=== PATIENT | female | born 1995 | race Two or more races ===

== ENCOUNTER 2019-10-06 17:38 | Emergency (ER) | payer MEDICAID ==
[~2019-10-06] VITALS: Ht 149.9 cm; Wt 55.0 kg
[2019-10-06] MEDS ORDERED: KETOROLAC 30MG/ML VIAL IV STA (19:04)
[2019-10-06] MEDS ORDERED: SODIUM CHLORIDE 0.9% 1,000 ML IV ONE (19:04)
[2019-10-06] MEDS ORDERED: ACETAMINOPHEN 325MG TABLET PO ONE (19:15)
[2019-10-06 19:37] LABS: CHLORIDE 105 mEq/L (98-107)
[2019-10-06 19:40] LABS: INR 0.9; PROTHROMBIN TIME 10.2 sec (9.6-11.0)
[2019-10-06 19:42] LABS: CLARITY URINE CLEAR (CLEAR); COLOR URINE YELLOW (YELLOW); KETONES URINE 1+ (NEGATIVE); LEUKOCYTE ESTERASE URINE 2+ (NEGATIVE); NITRITE URINE NEGATIVE (NEGATIVE); OCCULT BLOOD URINE 1+ (NEGATIVE); PROTEIN URINE NEGATIVE (NEGATIVE); SPECIFIC GRAVITY URINE 1.012 (1.005-1.030); UROBILINOGEN URINE 0.2 E.U./dL (0.2-1.0)
[2019-10-06 19:43] LABS: BASOPHILS % 0.4 % (0.0-2.0); EOSINOPHILS % 1.5 % (0.0-5.0); HEMATOCRIT. 40.8 % (36.0-48.0); HEMOGLOBIN. 13.9 g/dL (12.0-16.0); LYMPHOCYTES % 29.4 % (20.0-50.0); MEAN CORPUSCULAR HEMOGLOBIN 32.2 pg (28.0-32.0); MEAN CORPUSCULAR VOLUME 94.6 fL (81.0-99.0); MEAN PLATELET VOLUME 8.5 fl (7.4-10.4); MONOCYTES % 7.8 % (2.0-8.0); NEUTROPHILS % 60.9 % (40.0-76.0); PLATELET 285 x1000/uL (130-400); RED BLOOD CELL COUNT 4.31 mill/uL (4.2-5.4)
[2019-10-06 22:32] VITALS: BP 118/70
== END 2019-10-06 22:33 | disposition home or self-care (01) ==
LOC: ER 17:38
DX: N39.0 Urinary tract infection, site not specified (principal); M54.5 Low back pain; R11.2 Nausea with vomiting, unspecified
CPT/HCPCS: 36415; 80053; 81003; 81025; 85025; 85610; 96361; 96374; 99283; J1885; J7030

== ENCOUNTER 2020-08-31 09:20 | Emergency (ER) | payer BC, MEDICAID ==
[~2020-08-31] VITALS: Ht 149.9 cm; Wt 54.0 kg
[2020-08-31] MEDS ORDERED: TETRACAINE 0.5% OPHTH DROPS 4ML BOTHEYE ONE (10:00)
[2020-08-31] MEDS ORDERED: IBUPROFEN 600MG TABLET PO ONE (10:00)
[2020-08-31] MEDS ORDERED: FLUORESCEIN SODIUM 1MG/STRIP BOTHEYE ONE (10:00)
[2020-08-31 10:25] VITALS: BP 117/53
== END 2020-08-31 11:19 | disposition home or self-care (01) ==
LOC: ER 09:26
DX: M25.511 Pain in right shoulder (principal); H57.12 Ocular pain, left eye; V49.59XA Passenger injured in collision with other motor vehicles in traffic accident, initial encounter; Y93.89 Activity, other specified; Y92.89 Other specified places as the place of occurrence of the external cause; Y99.8 Other external cause status
CPT/HCPCS: 73030; 81025; 99284